=== PATIENT | female | born 1940 | race Caucasian/White ===

== ENCOUNTER 2019-03-17 10:10 | Emergency (ER) | payer OTHER, MEDICARE ==
--- NOTE | 2019-03-17 12:35 | ER ---
Nurse's Notes [facility] Name: Terra Mccracken Age: 79 yrs Sex: Female : 1940 Arrival Date: 03/17/2019 Time: 10:14 Bed 16 Private MD: Mercedez Oquendo C Diagnosis: Pain in right lower leg-spontaneous calf hematoma;Synovial cyst of popliteal space [Nicholson], right knee Presentation: 03/17 10:32 Presenting complaint: Patient states: Pain and swelling to RLE that began 2 days ago. ss Pt has a history of AFIB and currently takes Xarelto, but is concerned because she is supposed to stop taking it the next two days to prepare for dental surgery. Transition of care: patient was not received from another setting of care. Onset of symptoms was March 15, 2019. Risk Assessment: Do you want to hurt yourself or someone else? Patient reports no desire to harm self or others. Initial Sepsis Screen: Does the patient meet any 2 criteria? No. Patient's initial sepsis screen is negative. Does the patient have a suspected source of infection? No. Patient's initial sepsis screen is negative. Care prior to arrival: None. 10:32 Method Of Arrival: Ambulatory ss 10:32 Acuity: RANDY 3 ss Historical: - Allergies: 10:36 No Known Allergies; ss - PMHx: 10:36 Hypertension; Atrial Fib; ss - Immunization history:: Adult Immunizations up to date. - Social history:: Smoking status: Patient/guardian denies using tobacco. - Ebola Screening: : Patient denies exposure to infectious person Patient denies travel to an Ebola-affected area in the 21 days before illness onset. Screenin:47 Abuse screen: Denies injuries from another. Nutritional screening: No deficits noted. la1 Tuberculosis screening: No symptoms or risk factors identified. Fall Risk None identified. Assessment: 10:46 General: Appears in no apparent distress. Behavior is calm, cooperative. Pain: la1 Complains of pain in right calf. Neuro: Level of Consciousness is awake, alert, obeys commands, Oriented to person, place, time, situation. Cardiovascular: Capillary refill < 3 seconds. Respiratory: Airway is patent Respiratory effort is even, unlabored, Respiratory pattern is regular, symmetrical. GI: No signs and/or symptoms were reported involving the gastrointestinal system. : No signs and/or symptoms were reported regarding the genitourinary system. Vital Signs: 10:36 BP 131 / 65; Pulse 90; Resp 16; Temp 97.8(TE); Pulse Ox 98% on R/A; Weight 58.51 kg; ss Height 5 ft. 4 in. (162.56 cm); Pain 8/10; 12:35 BP 127 / 84; Pulse 56; Resp 16; Pulse Ox 98% on R/A; la1 10:36 Body Mass Index 22.14 (58.51 kg, 162.56 cm) ss ED Course: 10:14 Patient arrived in ED. dp 10:15 Mercedez Oquendo MD is Private Physician. dp 10:30 Blake Mcdonald PA is PHCP. cp 10:30 Sesar aPlmer MD is Attending Physician. cp 10:33 Triage completed. ss 10:36 Arm band placed on right wrist. ss 10:38 Lan Steiner RN is Primary Nurse. la1 10:47 Bed in low position. Call light in reach. la1 12:33 Mercedez Oquendo MD is Referral Physician. cp 12:37 Margarito wrap to right calf. jb1 12:39 US Extremity Venous Unilateral Ltd In Process Unspecified. EDMS 12:42 No provider procedures requiring assistance completed. Patient did not have IV access la1 during this emergency room visit. Administered Medications: No medications were administered Outcome: 12:34 Discharge ordered by MD. cp 12:43 Discharged to home ambulatory. la1 12:43 Condition: stable 12:43 Discharge instructions given to patient, Instructed on discharge instructions, follow up and referral plans. medication usage, Demonstrated understanding of instructions, follow-up care, medications, Prescriptions given X 1. 12:43 Patient left the ED. la1 Signatures: Dispatcher [employer] EDMS Mike Cedeño1 Светлана Nicole RN RN Lan Steiner RN RN la1 Blake Mcdonald PA PA cp Pena, Darian dp Corrections: (The following items were deleted from the chart) 10:35 10:32 Presenting complaint: Patient states: Redness and swelling to RLE that began 2 ss days ago. Pt has a history of AFIB and currently takes Xarelto, but is concerned because she is supposed to stop taking it the next two days to prepare for dental surgery. ss
--- NOTE | 2019-03-17 12:35 | EDPHYS ---
Physician Documentation [facility] Name: Terra Mccracken Age: 79 yrs Sex: Female : 1940 Arrival Date: 03/17/2019 Time: 10:14 Bed 16 Private MD: Mercedez Oquendo C ED Physician Sesar Palmer HPI: 03/17 10:44 This 79 yrs old Female presents to ER via Ambulatory with complaints of Leg cp Swelling, Leg Pain. 10:44 The patient presents with pain, that is acute, swelling, tenderness. The complaints cp affect the right calf. Context: resulted from an unknown cause, the patient can fully bear weight, the patient is able to ambulate, with mild difficulty. Onset: The symptoms/episode began/occurred 2 day(s) ago. 10:44 Associated signs and symptoms: Pertinent positives: calf tenderness, Pertinent cp negatives fever, numbness, warmth, weakness, injury. 10:44 Modifying factors: the symptoms are aggravated by weight bearing, palpation. Treatment cp prior to arrival includes: no previous treatment. Historical: - Allergies: 10:36 No Known Allergies; ss - PMHx: 10:36 Hypertension; Atrial Fib; ss - Immunization history:: Adult Immunizations up to date. - Social history:: Smoking status: Patient/guardian denies using tobacco. - Ebola Screening: : Patient denies exposure to infectious person Patient denies travel to an Ebola-affected area in the 21 days before illness onset. ROS: 10:44 Constitutional: Negative for body aches, chills, fever, poor PO intake. cp 10:44 ENT: Negative for drainage from ear(s), ear pain, sore throat, difficulty swallowing, difficulty handling secretions. 10:44 Cardiovascular: Negative for chest pain, palpitations. 10:44 Respiratory: Negative for cough, shortness of breath, wheezing. 10:44 Abdomen/GI: Negative for abdominal pain, nausea, vomiting, and diarrhea, black/tarry stool, rectal bleeding. 10:44 MS/extremity: Positive for pain, swelling, tenderness, of the right calf, Negative for injury or acute deformity, decreased range of motion, paresthesias. 10:44 Skin: Negative for cellulitis, rash. 10:44 Neuro: Negative for altered mental status, headache, syncope, weakness. 10:44 All other systems are negative. Exam: 10:50 Constitutional: The patient appears in no acute distress, alert, awake, non-toxic, well cp developed, well nourished. 10:50 Head/Face: Normocephalic, atraumatic. cp 10:50 Eyes: Periorbital structures: appear normal, Conjunctiva: normal, no exudate, no injection, Sclera: no appreciated abnormality, Lids and lashes: appear normal, bilaterally. 10:50 ENT: External ear(s): are unremarkable, Nose: is normal, Mouth: Lips: moist, Oral mucosa: moist, Posterior pharynx: is normal, airway is patent, no erythema, no exudate. 10:50 Chest/axilla: Inspection: normal. 10:50 Cardiovascular: Rate: normal, Rhythm: regular. 10:50 Respiratory: the patient does not display signs of respiratory distress, Respirations: normal, no use of accessory muscles, no retractions, no splinting, no tachypnea. 10:50 Abdomen/GI: Exam negative for discomfort, distension, guarding, Inspection: abdomen appears normal. 10:50 Musculoskeletal/extremity: DVT Exam: no erythema, no increased warmth, pain, of the right leg, of the right calf and posterior aspect right knee, swelling, tenderness, positive Homans' sign noted on exam. Vital Signs: 10:36 BP 131 / 65; Pulse 90; Resp 16; Temp 97.8(TE); Pulse Ox 98% on R/A; Weight 58.51 kg; ss Height 5 ft. 4 in. (162.56 cm); Pain 8/10; 12:35 BP 127 / 84; Pulse 56; Resp 16; Pulse Ox 98% on R/A; la1 10:36 Body Mass Index 22.14 (58.51 kg, 162.56 cm) ss MDM: 10:36 Patient medically screened. cp 11:00 Differential diagnosis: contusion, Nicholson's cyst, DVT, cellulitis. cp 12:33 Data reviewed: vital signs, nurses notes, radiologic studies, ultrasound. cp 12:33 Counseling: I had a detailed discussion with the patient and/or guardian regarding: the cp historical points, exam findings, and any diagnostic results supporting the discharge/admit diagnosis, radiology results, the need for outpatient follow up, an equipment monitor phototypesetting, to return to the emergency department if symptoms worsen or persist or if there are any questions or concerns that arise at home. 03/17 10:42 Order name: US Extremity Venous Unilateral Ltd cp 03/17 12:22 Order name: Margarito Wrap: snug but not tight around right calf; Complete Time: 12:35 cp Administered Medications: No medications were administered Disposition: 12:44 Chart complete. cp 12:45 Co-signature as Attending Physician, Sesar Palmer MD. rn Disposition: 03/17/19 12:34 Discharged to Home. Impression: Pain in right lower leg - spontaneous calf hematoma, Synovial cyst of popliteal space [Nicholson], right knee. - Condition is Stable. - Discharge Instructions: Nicholson Cyst, Hematoma. - Prescriptions for Tramadol 50 mg Oral Tablet - take 1 tablet by ORAL route every 8 hours as needed; 20 tablet. - Medication Reconciliation Form, Thank You Letter, Antibiotic Education, Prescription Opioid Use form. - Follow up: Mercedez Oquendo MD; When: 1 week; Reason: Recheck today's complaints. - Problem is new. - Symptoms have improved. Signatures: Dispatcher [employer] EDMS Sesar Palmer MD MD rn Smirch, Shelby, RN RN ss Lan Steiner RN RN la1 Blake Mcdonald PA PA cp Corrections: (The following items were deleted from the chart) 12:43 12:34 03/17/2019 12:34 Discharged to Home. Impression: Pain in right lower leg - la1 spontaneous calf hematoma; Synovial cyst of popliteal space [Nicholson], right knee. Condition is Stable. Forms are Medication Reconciliation Form, Thank You Letter, Antibiotic Education, Prescription Opioid Use. Follow up: Mercedez Oquendo; When: 1 week; Reason: Recheck today's complaints. Problem is new. Symptoms have improved. cp
[2019-03-17 12:50] VITALS: TEMP 97.8; O2SAT 98
[2019-03-17 12:52] VITALS: BP 127/84
--- NOTE | 2019-03-17 13:07 | RAD REPORT ---
EXAM DESCRIPTION: USExtremity Venous Uni Ltd03/17/2019 12:39 pm CLINICAL HISTORY: Right leg pain and swelling. COMPARISON: 2009 FINDINGS: Right common femoral, superficial femoral, popliteal and right posterior tibial veins are compressible and demonstrate augmentation. Doppler demonstrates good flow. 3 x 1 x 1 centimeter Nicholson's cyst. 5 x 2 x 4 centimeter heterogeneous fluid collection within the upper posterior calf IMPRESSION: No evidence of deep venous thrombosis involving the right lower extremity. 3 centimeter Nicholson's cyst 5 centimeter heterogeneous fluid collection within the upper posterior calf may represent hematoma. F ollow up ultrasound in a couple weeks is recommended to assess stability/resolution
== END 2019-03-17 12:43 | disposition home or self-care (01) ==
LOC: ER 10:10
DX: M79.661 Pain in right lower leg (principal); M71.21 Synovial cyst of popliteal space [Baker], right knee; M79.81 Nontraumatic hematoma of soft tissue
CPT/HCPCS: 93971; 99283